=== PATIENT | female | born 1965 | race Caucasian/White ===

== ENCOUNTER → 2018-03-16 | Outpatient (CLI) | payer BC ==
[~2018-03-16] MED LIST: ENOX80DI8 SQ; LEV75 PO; NATURE THROID PO; WARF5TAB23 PO
--- NOTE | 2018-03-17 10:41 | RADIOLOGY IMAGING REPORT ---
FACILITY: [facility] [place] PATIENT NAME: GIULIA TAVAREZ : [id number] MR: [id number] V: [id number] EXAM DATE: [id number] ORDERING PHYSICIAN: GWENDOLYN PEREZ TECHNOLOGIST: Teresa Lancaster PROCEDURE:BILATERAL DIGITAL SCREENING MAMMOGRAM WITH CAD ASSISTED INTERPRETATION & 3D TOMOSYNTHESIS COMPARISON:Prior mammograms 08/08/15, 02/20/13. INDICATIONS:SCREENING FINDINGS: Moderately dense fibroglandular tissue is seen throughout the breasts. On the Right MLO view in the upper portion there is an ovoid area of increased density not appreciated on the prior study. This may be just lateral to midline Zone 3 on the Right CC view. Spot compression views in the Right CC and MLO projections recommended in addition to Right breast Ultrasound. DIAGNOSTIC CATEGORY 0--INCOMPLETE: NEED ADDITIONAL IMAGING EVALUATION. RECOMMENDATIONS: ADDITIONAL MAMMOGRAPHIC VIEWS REQUIRED: RIGHT BREAST. ULTRASOUND: RIGHT BREAST. IMPRESSION: BIRADS 0: Incomplete Additional view of the Right breast and Right breast Ultrasound recommend as described above. Dictated by: Angela Fischer M.D. on 03/16/2018 at 11:06 Transcribed by: JULIAN on 03/17/2018 at 9:11 Approved by: Angela Fischer M.D. on 03/17/2018 at 10:40 [facility]
== END ==
LOC: MAMO 00:56
PROVIDERS: ATTEND Nurse Practitioner Family
DX: Z12.31 Encounter for screening mammogram for malignant neoplasm of breast (principal); R92.8 Other abnormal and inconclusive findings on diagnostic imaging of breast
CPT/HCPCS: 77063; 77067

== ENCOUNTER → 2018-03-24 | Outpatient (CLI) | payer BC ==
--- NOTE | 2018-03-24 16:15 | RADIOLOGY IMAGING REPORT ---
FACILITY: [facility] PATIENT NAME: GIULIA TAVAREZ : [id number] MR: [id number] V: [id number] EXAM DATE: [id number] ORDERING PHYSICIAN: GWENDOLYN PEREZ TECHNOLOGIST: Ana Paula Jc PROCEDURE:RIGHT DIGITAL DIAGNOSTIC MAMMOGRAM WITH CAD ASSISTED INTERPRETATION & 3D TOMOSYNTHESIS COMPARISON:Mammogram 03/16/2018 and 08/08/2015. INDICATIONS:focal asymmetry Right breast FINDINGS: Right breast mediolateral view, as well as CC compression views, and MLO compression views were obtained. Again seen in the posterior 3D Right breast approximately 1 o'clock position there is a smooth bordered triangular shaped mass that measures 0.9 x 0.8cm. This is the same lesion seen on the prior mammogram. This is new from the comparison mammogram from 08/08/2015. The remaining breast tissue on the Right is normal. DIAGNOSTIC CATEGORY 0--INCOMPLETE: NEED ADDITIONAL IMAGING EVALUATION. RECOMMENDATIONS: ULTRASOUND: RIGHT BREAST. IMPRESSION: BIRADS 0: Incomplete. Indeterminate lesion Right breast posterior depth measuring 0.9cm. Dictated by: Keagan Way M.D. on 03/24/2018 at 15:11 Transcribed by: JULIAN on 03/24/2018 at 16:06 Approved by: Keagan Way M.D. on 03/24/2018 at 16:13 [facility]
--- NOTE | 2018-03-29 08:54 | RADIOLOGY IMAGING REPORT ---
FACILITY: [facility] [place] PATIENT NAME: GIULIA TAVAREZ : [id number] MR: [id number] V: [id number] EXAM DATE: [id number] ORDERING PHYSICIAN: GWENDOLYN PEREZ TECHNOLOGIST: Rico Lanier PROCEDURE:US RIGHT BREAST COMPARISON:Mammogram 03/24/2018 INDICATIONS:further eval/mass Right breast FINDINGS: Ultrasound images Right breast demonstrate normal fibroglandular tissue elements. There is no suspicious mass. DIAGNOSTIC CATEGORY 4--SUSPICIOUS FOR MALIGNANCY. RECOMMENDATIONS: STEREOTACTIC BREAST BIOPSY: RIGHT BREAST. IMPRESSION: BIRADS 4: Suspicious for malignancy. No evidence of mass. I imaged the patient in real time, & could not find an abnormality which would correspond to the lesion in the Right breast, posterior third depth between the 11 & 12 o'clock position. Patient was placed on a Stereotactic table, & I viewed the image & found that it would be amenable to a lateral approach for Stereotactic guided biopsy. Dictated by: Keagan Way M.D. on 03/24/2018 at 16:12 Transcribed by: JOHN on 03/25/2018 at 6:46 Approved by: Angela Fischer M.D. on 03/29/2018 at 8:53 [facility]
== END ==
LOC: MAMO 01:25
PROVIDERS: ATTEND Nurse Practitioner Family
DX: R92.8 Other abnormal and inconclusive findings on diagnostic imaging of breast (principal)
CPT/HCPCS: 77061; 77065

== ENCOUNTER → 2018-04-12 | Outpatient (CLI) | payer BC ==
--- NOTE | 2018-04-19 16:38 | RADIOLOGY IMAGING REPORT ---
FACILITY: [facility] [place] PATIENT NAME: GIULIA TAVAREZ : [id number] MR: [id number] V: [id number] EXAM DATE: [id number] ORDERING PHYSICIAN: GWENDOLYN PEREZ TECHNOLOGIST: Teresa Lancaster PROCEDURE: STEREOTACTIC RIGHT BREAST BIOPSY COMPARISON: None. INDICATIONS: RT BREAST LUMP/LOBULAR DENSITY UPPER OUTER QUADRANT RT BREAST IN THE POSTERIOR THIRD. FINDINGS: The stereotactic biopsy Right breast however could not be performed as despite repeated positioning the nodule in question could not be localized with digital stereo pair images without overlapping blood vessels. DIAGNOSTIC CATEGORY 4--SUSPICIOUS FOR MALIGNANCY. RECOMMENDATIONS: SURGICAL BIOPSY COORDINATED WITH MAMMOGRAM HOOKWIRE LOCALIZATION: RIGHT BREAST. CONCLUSION: BIRADS 4: SUSPICIOUS FOR MALIGNANCY. 1. A surgical biopsy coordinated with mammographic hookwire localization of the ovoid nodular density in the upper outer quadrant of the Right breast posterior third recommended since the stereotactic biopsy could not be localized without overlapping blood vessels. Dictated by: Angela Fischer M.D. on 04/12/2018 at 16:17 Transcribed by: JOHN on 04/13/2018 at 7:29 Approved by: Angela Fischer M.D. on 04/13/2018 at 8:34 [facility]
--- NOTE | 2018-04-19 16:39 | RADIOLOGY IMAGING REPORT ---
FACILITY: [facility] [place] PATIENT NAME: GIULIA TAVAREZ : [id number] MR: [id number] V: [id number] EXAM DATE: [id number] ORDERING PHYSICIAN: GWENDOLYN PEREZ TECHNOLOGIST: Teresa Lancaster PROCEDURE: STEREOTACTIC RIGHT BREAST BIOPSY COMPARISON: None. INDICATIONS: RT BREAST LUMP/LOBULAR DENSITY UPPER OUTER QUADRANT RT BREAST IN THE POSTERIOR THIRD. FINDINGS: The stereotactic biopsy Right breast however could not be performed as despite repeated positioning the nodule in question could not be localized with digital stereo pair images without overlapping blood vessels. DIAGNOSTIC CATEGORY 4--SUSPICIOUS FOR MALIGNANCY. RECOMMENDATIONS: SURGICAL BIOPSY COORDINATED WITH MAMMOGRAM HOOKWIRE LOCALIZATION: RIGHT BREAST. CONCLUSION: BIRADS 4: SUSPICIOUS FOR MALIGNANCY. 1. A surgical biopsy coordinated with mammographic hookwire localization of the ovoid nodular density in the upper outer quadrant of the Right breast posterior third recommended since the stereotactic biopsy could not be localized without overlapping blood vessels. Dictated by: Angela Fischer M.D. on 04/12/2018 at 16:17 Transcribed by: JOHN on 04/13/2018 at 7:29 Approved by: Angela Fischer M.D. on 04/13/2018 at 8:34 [facility]
== END ==
LOC: MAMO 03-31 00:38
PROVIDERS: ATTEND Nurse Practitioner Family
DX: N63.11 Unspecified lump in the right breast, upper outer quadrant (principal)
CPT/HCPCS: 77061; 77065

== ENCOUNTER 2018-05-12 01:37 | Day surgery (SDC) | payer BC ==
[2018-05-06 14:14] LABS: PLATELET COUNT, AUTOMATED 195 K/uL (150-450)
[~2018-05-12] VITALS: Ht 170.2 cm; Wt 76.2 kg
[~2018-05-12 01:37] MED LIST changes: +ACET-1966 PO; +BUPR300T56 PO; +CHOL500045 PO; +CYAN100071 PO; +FOLI0.4T56 PO; +IBUP-136 PO; +LORA-802 PO; +NALT50TA15 PO; +PROG100C PO; +[UNRECOGNIZED DRUG - CODE] PO
[2018-05-12] MEDS ORDERED: ROPIVACAINE 0.5% 20 ML VIAL ONE (08:14)
[2018-05-12] MEDS ORDERED: ceFAZolin(*) 1 GM VIAL 1 GM in NS(*) 0.9% 100 ML ADDVANT BAG 100 ML IVPB ONE (08:30)
[2018-05-12] MEDS ORDERED: fentaNYL CITR 100 MCG/2 ML AMP ONE ×2 (08:43→11:59)
[2018-05-12] MEDS ORDERED: LIDOCAINE MPF 1% 5 ML VIAL ONE ×2 (08:44→09:07)
[2018-05-12] MEDS ORDERED: PROPOFOL EMUL(*) 10MG/ML 20 ML 20 ML ONE (08:44)
[2018-05-12 08:53] VITALS: BP 121/91
[2018-05-12] MEDS ORDERED: LIDOCAINE/SOD BICARB 8.4% SYR ID ONE (09:30)
[2018-05-12] MEDS ORDERED: NORMOSOL R SOLN(*) 1000 ML BAG 1,000 ML IV PRN (09:30)
[2018-05-12] MEDS ORDERED: MIDAZOLAM 2 MG/2 ML VIAL IVP PRN (09:30)
[2018-05-12] MEDS ORDERED: FAMOTIDINE 20 MG TAB PO ONE (09:30)
[2018-05-12] MEDS ORDERED: DEXAMETHASONE SOD 4 MG/ML VIAL ONE (11:19)
[2018-05-12] MEDS ORDERED: ONDANSETRON 4 MG/2 ML VIAL ONE (11:20)
[2018-05-12 13:00] VITALS: BP 119/78
[2018-05-12 13:15] VITALS: BP 126/86
--- NOTE | 2018-05-12 13:20 | Short(Outpt) Discharge Summary ---
Discharge Summary Reason for Hosp/Final Diag: (1) Mass of right breast on mammogram Status: Chronic Hospital Course & Plan: Right breast lesion removed with radiographically preplaced wire guidance without problems. Departure Discharge to: Home, Self Care Discharge Instructions Home Meds Reported Medications Naltrexone Hcl (NALTREXONE HCL) 50 Mg Tablet, 50 MG PO DAILY 05/05/18 Loratadine (CLARITIN) 10 Mg Tablet, 10 MG PO PRN 04/26/18 Ibuprofen (IBUPROFEN) 200 Mg Capsule, 1-2 CAP PO Q6H Y for prn, CAPSULE 04/26/18 Acetaminophen (TYLENOL) 325 Mg Tablet, 1-2 MG PO PRN, TAB 04/26/18 Cholecalciferol (Vitamin D3) (VITAMIN D) 5,000 Unit Tablet, 5000 UNIT PO QDAY 04/26/18 Folic Acid (FOLIC ACID) Unknown Strength Tablet, PO DAILY 04/26/18 Cyanocobalamin (Vitamin B-12) (VITAMIN B-12) 1,000 Mcg Tab.subl, 1000 MCG PO QDAY 04/26/18 Progesterone,Micronized (PROGESTERONE) 100 Mg Capsule, 100 MG PO QDAY, CAPSULE 04/26/18 Bupropion Hcl (BUPROPION XL) 300 Mg Tab.er.24h, 300 MG PO QDAY, #10 TAB 04/26/18 Thyroid,Pork (ARMOUR THYROID) 180 Mg Tablet, 180 MG PO QDAY 04/26/18 Follow up Referrals: General Surgery - 05/27/18 @ Surgery, General with Dinorah Mayorga Md You have a follow up appointment scheduled with Dr. Mayorga on 05/27/18, at 10:00am. Diet: Regular Activity: As Tolerated Special Instructions: You may remove the white surgical dressing on 05/14/18, then you can shower. After showering, leave the incision open to air but leave the steristrips in place until they fall off on their own. Do not immerse the incision for 2 weeks. You may use acetaminophen (Tylenol) and ibrofen (Motrin) for pain relief. You can also apply ice to the incision to help with swelling and pain control as well. DINORAH MAYORGA MD May 12, 2018 13:20
--- NOTE | 2018-05-12 13:26 | Post Operative Progress Note ---
Post Operative Progress Note Date: May 12, 2018 Time: 13:21 Surgeon: Leroy Dictation number: [id number] Anesthesia: LMA by Dr. Aldana Pre-Op Diagnosis: Right breast lesion on mammogram Post-Op Diagnosis: VICENTE Findings: Lesion in middle of specimen on specimen mammogram after removal Procedure(s): Right breast wire-guided lesion excision Specimen Removed:(May be N/A): Right breast lesion Complications: None Fluids: See anesthesia record Estimated Blood Loss: Minimal Date OP Note Dictated: May 12, 2018 Time OP Note Dictated: 13:22 DINORAH MAYORGA MD May 12, 2018 13:26
[2018-05-12 13:30] VITALS: BP 125/83
[2018-05-12 13:45] VITALS: BP 118/92
[2018-05-12 13:47] VITALS: BP 125/86
--- NOTE | 2018-05-12 14:33 | OPERATIVE REPORT 1 ---
EVENT DATE: May 12, 2018 SURGEON: Nacho Harper MD ANESTHESIOLOGIST: Ritesh Aldana MD ANESTHESIA: LMA. PREOPERATIVE DIAGNOSIS Right breast mammographic lesion. POSTOPERATIVE DIAGNOSIS Right breast mammographic lesion. PROCEDURE PERFORMED Wire-guided excision of right breast lesion. COMPLICATIONS None. CONDITION Stable. BLOOD LOSS Minimal. INDICATIONS This is a 52-year-old female who was referred to my office after she was found to have a suspicious lesion in the upper portion of her right breast on screening mammogram. They were unable to perform a biopsy of it and so requested a wire-guided excision. DESCRIPTION OF PROCEDURE The patient was brought into the operating room and placed supine on the operating table. I reviewed the preop imaging and wire placement imaging with the radiologist, and then her right breast was prepped and draped in a sterile fashion. Timeout was completed. I made a john on the skin approximately over the lesion and then anesthetized the skin with 0.5% ropivacaine plain. I made a curvilinear incision right in this area parallel with the skin lines and then dissected through the dermis and subcutaneous fat. I dissected over towards where the wire exited the skin and pulled the wire in to the wound and then dissected a column of tissue around the wire all the way beyond the tip of the wire. I then placed it on a grid and walked it over to Radiology. We took a two-view image of the specimen and found the lesion right in the middle of this specimen. It looked like we had good margins. I then went back to the OR, rescrubbed in, irrigated, dried the wound, and made sure it was hemostatic. I then closed the soft tissue pocket with running 3-0 Vicryl sutures in three layers, and then the skin was closed with interrupted 3-0 Vicryl deep dermal sutures and 4-0 Monocryl running subcuticular suture. Skin was cleaned and dried, and Steri-Strips were applied, followed by a sterile surgical dressing. The patient was awakened and extubated in the operating room and transferred to the recovery room in stable condition having tolerated the procedure without any apparent problems. CAMELIA
--- NOTE | 2018-05-12 14:59 | RADIOLOGY IMAGING REPORT ---
[facility] PATIENT NAME: GIULIA TAVAREZ : [id number] MR: [id number] V: [id number] EXAM DATE: ORDERING PHYSICIAN: DINORAH MAYORGA TECHNOLOGIST: Ana Paula Jc PROCEDURE: NEEDLE LOCALIZATION RIGHT BREAST COMPARISON: Prior mammogram 03/16/18. INDICATIONS: Wire placement for lump excision upper outer quadrant Right breast. Indeterminate mass upper outer quadrant Right breast FINDINGS: Prior to the exam, risks and benefits of the Right breast wire localization was discussed with the patient and informed consent was obtained. The Right breast was placed in a lateral to medial position. The skin was prepped in normal sterile fashion. 1% lidocaine was locally injected for analgesia. Next, using a mammogram grid technique, a needle was advanced towards the lesion in the upper outer quadrant. Once needle was advanced sufficiently, the lateromedial view was then changed to the CC view. The needle was then withdrawn to the position of the mass. When the needle was in the appropriate position, a Kopans wire was then advanced. The needle was then removed. Final MLO/final lateromedial & CC view demonstrated that the wire was in good position with respect to the mass. The wire was then secured to the skin. There were no immediate post procedure complications. CONCLUSION: Right breast mass wire localization procedure, using mammogram technique. The mass was successfully identified & wire was placed in good position. This was discussed with the surgeon by Dr Way. Dictated by: Keagan Way M.D. on 05/12/2018 at 12:17 Transcribed by: JOHN on 05/12/2018 at 14:31 Approved by: Keagan Way M.D. on 05/12/2018 at 14:57 [facility]
--- NOTE | 2018-05-12 15:44 | RADIOLOGY IMAGING REPORT ---
FACILITY: [facility] [place] PATIENT NAME: GIULIA TAVAREZ : [id number] MR: [id number] V: [id number] EXAM DATE: [id number] ORDERING PHYSICIAN: DINORAH MAYORGA TECHNOLOGIST: Ana Paula Jc PROCEDURE: BREAST SPECIMEN COMPARISON: None. INDICATIONS: R. breast Lump excision FINDINGS: Mammogram image of the breast sample demonstrates intact wire, and mass within the center of the tissue. IMPRESSION: Normal appearance of mammogram specimen radiograph grid. CONCLUSION: Dictated by: Keagan Way M.D. on 05/12/2018 at 14:47 Transcribed by: JULIAN on 05/12/2018 at 15:02 Approved by: Keagan Way M.D. on 05/12/2018 at 15:44 [facility]
== END 2018-05-12 13:00 | disposition home or self-care (01) ==
LOC: OR 01:37
PROVIDERS: ATTEND Surgery
DX: N64.9 Disorder of breast, unspecified (principal); Z86.718 Personal history of other venous thrombosis and embolism; E03.9 Hypothyroidism, unspecified
CPT/HCPCS: 19125; 19283; 36415; 84443; 85025; 88305; 88344; J0690; J1100; J2001; J2250; J2405; J2704; J2795; J3010; J7050

== ENCOUNTER → 2019-04-10 | Outpatient (CLI) | payer BC ==
--- NOTE | 2019-04-11 10:06 | RADIOLOGY IMAGING REPORT ---
FACILITY: [facility] PATIENT NAME: GIULIA TAVAREZ : [id number] MR: [id number] V: [id number] EXAM DATE: [id number] ORDERING PHYSICIAN: DINORAH MAYORGA TECHNOLOGIST: Teresa Lancaster PROCEDURE: BILATERAL DIGITAL SCREENING MAMMOGRAM WITH CAD ASSISTED INTERPRETATION & 3D TOMOSYNTHESIS REASON FOR STUDY: Screening. FAMILY HISTORY OF BREAST CANCER: None. BREAST PROCEDURES/TREATMENTS: Benign surgical biopsy in 2018. COMPARISON: 03/24/18, 03/16/18, 08/08/15, 02/20/13. VIEWS OBTAINED: 2D & 3D full field CC & MLO. BREAST DENSITY: The breasts are heterogeneously dense which can obscure small masses. MAMMOGRAM FINDINGS: There are surgical clips in the upper outer quadrant of the Right breast. The parenchymal pattern has remained stable allowing for difference in mammographic technique & patient positioning. IMPRESSION: BIRADS 2: Benign finding. DIAGNOSTIC CATEGORY 2--BENIGN FINDING. RECOMMENDATIONS: ROUTINE MAMMOGRAM AND CLINICAL EVALUATION. Dictated by: Angela Fischer M.D. on 04/10/2019 at 17:51 Transcribed by: JULIAN on 04/11/2019 at 7:43 Approved by: Angela Fischer M.D. on 04/11/2019 at 10:05 [facility]
== END ==
LOC: MAMO 01:14
PROVIDERS: ATTEND Surgery
DX: Z12.31 Encounter for screening mammogram for malignant neoplasm of breast (principal)
CPT/HCPCS: 77063; 77067